=== PATIENT | male | born 1995 | race Two or more races ===

== ENCOUNTER 2025-04-08 08:55 | Emergency (ER) | payer BC ==
[~2025-04-08] VITALS: Ht 190.5 cm; Wt 90.7 kg
[2025-04-08] MEDS ORDERED: 0.9 % SODIUM CHLORIDE 1,000 ML IV STA ×2 (11:54→11:55)
[2025-04-08] MEDS ORDERED: PANTOPRAZOLE SODIUM 40 MG/VIAL VIAL IV STA (11:57)
[2025-04-08 12:48] LABS: BASO % 0.4 % (0.1-1.2); EOS # 0.00 (0.04-0.54); EOS % 0.0 % (0.7-7.0); LYMPH # 1.15 (1.18-3.74); LYMPH % 9.8 % (19.3-53.1); MEAN PLATELET VOLUME 9.30 fl (9.4-12.4); MONO # 1.12 (0.24-0.82); MONO % 9.5 % (4.7-12.5); NEUT # 9.44 (1.56-6.13); NEUT % 80.1 % (34.0-71.1); RED CELL DISTRIBUTION WIDTH 12.2 % (11.6-14.4)
[2025-04-08 13:12] LABS: ALT/SGPT 40.0 U/L (12-78); AST/SGOT 28.0 U/L (15-37); BILIRUBIN TOTAL 0.52 mg/dL (0.3-1.2); BUN CREA RATIO 13.0 (7.0-25.0); CREATININE SERUM 1.28 mg/dL (0.70-1.30); GFR 65.55; GLOBULINA 4.3 G/DL (2.4-3.5); GLUCOSE FASTING 108.0 mg/dL (65-100); OSMOLALITY SERUM 277.0 MOSM/KG (275-295)
[2025-04-08 15:16] LABS: URINE APPEARANCE Clear; URINE BILIRRUBIN Small (NEGATIVE); URINE BLOOD Negative; URINE COLOR Dark Yellow; URINE GLUCOSE Negative (NEGATIVE); URINE KETONE Trace (NEGATIVE); URINE LEUKOCYTE Trace; URINE NITRATE Negative; URINE UROBILINOGEN 1.0 E.U./dl
[2025-04-08 15:19] LABS: URINE BACTERIA 11.9 uL (0.0-1933); URINE EPITHELIAL CELLS 22.6 uL (0.0-38.8); URINE RBC 21.8 uL (0.0-20.8); URINE WBC 22.9 uL (0.0-23.2)
[2025-04-08 15:29] LABS: TYPE CELLS SQUAMOUS; URINE CAST 0.87 uL (0.0-1.40); URINE PROTEIN 100 (NEGATIVE)
[2025-04-08 15:30] LABS: URINE MUCUS MODERATE
== END 2025-04-08 20:58 | disposition home or self-care (01) ==
LOC: ER 09:27
PROVIDERS: General Practice
DX: R19.7 Diarrhea, unspecified (principal); R10.9 Unspecified abdominal pain
CPT/HCPCS: 36415; 74177; Q9965